=== PATIENT | male | born 1930 | race Caucasian/White ===

== ENCOUNTER 2016-08-13 06:28 | Emergency (ER) | payer MEDICARE | END 2016-08-13 08:00 | disposition home or self-care (01) | LOC: ER1 06:28 | DX: Z76.0 Encounter for issue of repeat prescription (principal); I10 Essential (primary) hypertension; E11.40 Type 2 diabetes mellitus with diabetic neuropathy, unspecified; Z88.8 Allergy status to other drugs, medicaments and biological substances | CPT/HCPCS: 99281 ==